=== PATIENT | female | born 1945 | race Caucasian/White ===

== ENCOUNTER 2017-08-04 18:15 | Inpatient (IN) | payer SELFPAY ==
[2017-08-04 18:18] VITALS: BMI 37.2
--- NOTE | 2017-08-04 19:44 | C.PDOC ---
History Of Present Illness The patient presents to the ED for evaluation of swelling to her bilateral lower extremities which she noticed for the past couple days. Patient states she was recently evicted from her apartment. Patient has no physical complaints at present time and denies fever, chills, nausea, vomiting. Time Seen by Provider: 08/04/17 19:43 Chief Complaint (Nursing): Medical Clearance History Per: Patient History/Exam Limitations: no limitations Onset/Duration Of Symptoms: Days Current Symptoms Are (Timing): Still Present Severity: None Pain Scale Rating Of: 0 Recent travel outside of the [place]: No Additional History Per: Patient Past Medical History Reviewed: Historical Data, Nursing Documentation, Vital Signs Vital Signs: Last Vital Signs Temp 97.6 F 08/04/17 18:33 Pulse 103 H 08/04/17 18:33 Resp 20 08/04/17 18:33 BP 154/82 H 08/04/17 18:33 Pulse Ox 99 08/04/17 21:29 - Medical History PMH: HTN Surgical History: No Surg Hx - [facility] Procedures DRAINAGE OF PERITONEAL CAVITY, PERCUTANEOUS APPROACH (04/23/16) DRAINAGE OF PERITONEAL CAVITY, PERCUTANEOUS APPROACH, DIAGN (11/15/16) ULTRASONOGRAPHY OF ABDOMEN (11/15/16) ULTRASONOGRAPHY OF RIGHT AND LEFT HEART, TRANSESOPHAGEAL (02/24/16) Family History: States: Unknown Family Hx - Social History Hx Alcohol Use: No Hx Substance Use: No - Immunization History Hx Tetanus Toxoid Vaccination: No Hx Influenza Vaccination: No Hx Pneumococcal Vaccination: No Review Of Systems Constitutional: Negative for: Fever, Chills Cardiovascular: Negative for: Chest Pain, Palpitations Respiratory: Negative for: Cough, Shortness of Breath Gastrointestinal: Negative for: Nausea, Vomiting Skin: Positive for: Other (swelling to bilateral legs ). Negative for: Rash, Lesions, Jaundice, Bruising Neurological: Negative for: Weakness, Numbness Physical Exam - Physical Exam Appears: Non-toxic, No Acute Distress Skin: Warm, Dry Head: Normacephalic, No Tenderness, No Swelling Eye(s): bilateral: Normal Inspection Oral Mucosa: Moist Neck: Supple Chest: Symmetrical, No Deformity, No Tenderness Cardiovascular: Rhythm Regular, No Murmur Respiratory: No Rales, Rhonchi (scattered ), No Wheezing Gastrointestinal/Abdominal: Soft, No Tenderness, Distention, No Guarding, No Rebound, Other (positive fluid wave test) Extremity: Normal ROM, No Tenderness, Pedal Edema, No Calf Tenderness, Capillary Refill (less than 2 seconds ) Pulses: Left Dorsalis Pedis: Normal, Right Dorsalis Pedis: Normal Neurological/Psych: Oriented x3 Gait: Steady ED Course And Treatment - Laboratory Results Result Diagrams: 08/04/17 20:39 08/04/17 20:39 O2 Sat by Pulse Oximetry: 99 (on RA) Pulse Ox Interpretation: Normal - Radiology CXR: Interpreted by Me, Viewed By Me CXR Interpretation: No: Infiltrates, Fracture, Pnemothorax Progress Note: labs and CXR ordered and reviewed. Disposition Discussed With : Ailin Cannon Comment: accepted the pt on his service and took over the care ta 9:28 PM Doctor Will See Patient In The: Hospital Counseled Patient/Family Regarding: Studies Performed, Diagnosis - Disposition Disposition: HOSPITALIZED Disposition Time: 19:44 Condition: FAIR - POA Present On Arrival: Poor Glycemic Control - Clinical Impression Clinical Impression: Diabetes, Ascites of liver, Anemia, Leg edema - Scribe Statement The provider has reviewed the documentation as recorded by the Scribe (Brittany Oswald) Decision To Admit - Pt Status Changed To: Hospital Disposition Of: Inpatient - Admit Certification Admit to Inpatient:: After my assessment, the patient will require hospitalization for at least two midnights. This is because of the severity of symptoms shown, intensity of services needed, and/or the medical risk in this patient being treated as an outpatient. - InPatient: Physician Admission Certification: I certify that this patient requires 2 or more midnights of care for the following reason:: After my assessment, the patient will require hospitalization for at least two midnights. This is because of the severity of symptoms shown, intensity of services needed, and/or the medical risk in this patient being treated as an outpatient. - . Bed Request Type: Regular Admitting Physician: Ailin Cannon Patient Diagnosis: Diabetes, Ascites of liver, Anemia, Leg edema
[2017-08-04 20:47] LABS: BASO % 0.6 % (0.0-2.0); EOS % 1.7 % (0.0-4.0); HEMATOCRIT 31.3 % (34.0-47.0); LYMPH # 0.7 K/uL (1.0-4.3); LYMPH % 25.1 % (20.0-40.0); MEAN CELL VOLUME 90.5 fL (81.0-99.0); MEAN CORPUSCULAR HEMOGLOBIN 31.2 pg (27.0-31.0); MEAN CORPUSCULAR HGB CONC 34.5 g/dL (33.0-37.0); MEAN PLATELET VOLUME 9.2 fL (7.2-11.7); MONO # 0.2 K/uL (0.0-0.8); MONO % 6.6 % (0.0-10.0); NRBC % 0.2 % (0.0-2.0); RED CELL DISTRIBUTION WIDTH 14.1 % (11.5-14.5); WHITE BLOOD COUNT 2.7 K/uL (4.8-10.8)
[2017-08-04 20:55] LABS: CHLORIDE 102 mmol/L (98-107); INR 1.4; POTASSIUM 3.6 mmol/L (3.6-5.2); SODIUM 135 mmol/L (132-148)
[2017-08-04 20:57] LABS: ALB/GLOB RATIO 0.7 (1.0-2.1); ALKALINE PHOSPHATASE 97 U/L (38-126); AST/SGOT 56 U/L (14-36); BILIRUBIN,TOTAL 2.6 mg/dL (0.2-1.3); CARBON DIOXIDE 23 mmol/L (22-30); GFR AFRICAN-AMERICAN > 60; TOTAL PROTEIN 6.5 g/dL (6.3-8.3)
[2017-08-04 20:58] LABS: ALT/SGPT 51 U/L (9-52); BLOOD UREA NITROGEN 9 mg/dL (7-17); CALCIUM 7.7 mg/dl (8.6-10.4); GLUCOSE,RANDOM 186 mg/dL (65-105)
[2017-08-04 21:06] LABS: RBC URINE 19 /hpf (0-3); TRANSITIONAL EPITHIAL 1 /hpf (0-3); URINE BACTERIA OCC (<OCC); URINE BILIRUBIN NEGATIVE (NEGATIVE); URINE CALCIUM OXALATE CRYSTALS OCC /hpf (<OCC); URINE COLOR Amber (YELLOW); URINE GLUCOSE (UA) 1+ mg/dL (Normal); URINE KETONE NEGATIVE (NEGATIVE); URINE LEUKOCYTE ESTERASE 2+ Leu/uL (Negative); URINE PROTEIN NEGATIVE (NEGATIVE); WBC URINE 9 /hpf (0-5)
[2017-08-04 21:08] LABS: URINE BLOOD 2+ (NEGATIVE)
[2017-08-04] MEDS ORDERED: (Novolin R) Insulin Human Regular 100 units/ml vial ONE (22:14)
[2017-08-04] MEDS: (Novolin R) Insulin Human Regular 100 units/ml vial SC SCH (22:15)
[2017-08-05] MEDS: (Novolin R) Insulin Human Regular 100 units/ml vial SC SCH ×4 (08:31→22:21)
--- NOTE | 2017-08-05 09:15 | CP.PCM.PN ---
Subjective - Date & Time of Evaluation Date of Evaluation: 08/05/17 Time of Evaluation: 09:11 - Subjective Subjective: PGY-[address] Cannon's service: Pt seen and examined at bedside. Nursing reports no acute events overnight. She admits history of previous therapeutic paracentesis. She admits her "belly is getting larger" and feels "tense" but denies fever, chills, chest pain, abdominal pain, N/V/D/C. ___ The patient presents to the ED for evaluation of swelling to her bilateral lower extremities which she noticed for the past couple days. Patient states she was recently evicted from her apartment. Patient has no physical complaints at present time and denies fever, chills, nausea, vomiting. Objective - Vital Signs/Intake and Output Vital Signs (last 24 hours): Temp Pulse Resp BP Pulse Ox 98.5 F 80 17 125/75 95 08/05/17 07:10 08/05/17 07:10 08/05/17 07:10 08/05/17 07:10 08/05/17 07:10 Intake and Output: 08/05/17 08/05/17 06:59 18:59 Output Total 350 Balance -350 - Medications Medications: Current Medications Folic Acid (Folic Acid) 1 mg PO DAILY [facility] Furosemide (Lasix) 40 mg PO BID [facility] Home Med (Fluticasone/Vilanterol [Breo Ellipta 200-25 Mcg Inh]) 1 each IH BID [facility] Insulin Human Regular (Novolin R) 1 unit SC ACHS [facility] PRN Reason: Protocol Last Admin: 08/05/17 08:31 Dose: 1 unit Lactulose (Enulose) 20 gm PO DAILY [facility] Magnesium Oxide (Mag-Ox) 400 mg PO BID [facility] Sitagliptin Phosphate (Januvia) 100 mg PO DAILY [facility] Spironolactone (Aldactone) 50 mg PO BID [facility] Thiamine HCl (Vitamin B1 Tab) 100 mg PO DAILY [facility] - Labs Labs: 08/04/17 20:39 08/04/17 20:39 PT 15.4 SECONDS (9.7-12.2) H 08/04/17 20:39 INR 1.4 08/04/17 20:39 APTT 30 SECONDS (21-34) 08/04/17 20:39 Assessment and Plan - Assessment and Plan (Free Text) Plan: Leg edema Total body salt and water overload in setting of decompensated liver cirrhosis; will benefit from careful IV diuretics in the setting of borderline hypotension; -lasix 40 mg PO bid Type Two Diabetes Mellitus Uncontrolled; reports being only on PO meds, no insulin; possibly worsened in setting of active infection; - Start Lantus 10 u this evening -Januvia 100mg PO Daily -High dose sliding scale - f/u lipid panel, A1C Ascites of liver Likely secondary to hep C; abd distended but still soft; will benefit from therapeutic paracentesis by IR in am - f/u fluid analysis, body cell count for unlikely SBP Spirinolactone 50mg PO BID Lasix 40mg PO BID Hepatitis C Unclear if patient was being treated by [facility] [place] as she mentions being on a very expensive medication (local pharmacy unaware of this); -obtain records from [facility] - f/u Ammonia level in AM Lethargy Likely secondary to deconditioning in the setting of fluid overload; clinically not consistent with hepatic encephalopathy as patient is very lucid in giving history; -ammonia level in AM Leukopenia No fever, chills, SBP unlikely WBC 2.7 on AM labs - believe from history of hepatitis Hx of Anemia Hgb 10.8, stable Monitor Prophylaxis Hold heparin in setting of thrombocytopenia Pepcid 20mg PO BID SCDs C/I due to leg swelling Crow Bowie PGY-2 All medical management per Dr. Cannon
--- NOTE | 2017-08-05 09:20 | RAD ---
PROCEDURE: CHEST RADIOGRAPH, 1 VIEW HISTORY: Abdominal pain COMPARISON: 11/15/2016 FINDINGS: LUNGS: Mild venous congestion. Right hilar prominence. Patchy left basilar airspace opacity. PLEURA: No pneumothorax or pleural fluid seen. CARDIOVASCULAR: Tortuous aorta. OSSEOUS STRUCTURES: No significant abnormalities. VISUALIZED UPPER ABDOMEN: Normal. OTHER FINDINGS: None. IMPRESSION: Mild venous congestion. Right hilar prominence. Patchy left basilar airspace opacity.
[2017-08-05] MEDS ORDERED: Home Med 1 UNIT (Fluticasone/Vilanterol [Breo Ellipta 200-25 Mcg Inh] 1 EACH) IH SCH (10:00)
[2017-08-05] MEDS: Magnesium Oxide 400 mg Tab UD PO SCH ×2 (10:52→17:50)
[2017-08-05] MEDS: (Lantus) Insulin Glargine, Recombinant SC SCH (22:36)
--- NOTE | 2017-08-06 06:17 | HP ---
DATE OF SERVICE: 08/05/2017 HISTORY OF PRESENT ILLNESS: The patient is a 71-year-old female with history of liver cirrhosis, chief complaint of ascites, abdominal pain ____. Denies drinking. Denies smoking. PHYSICAL EXAMINATION: GENERAL: The patient is awake, alert, oriented. VITAL SIGNS: Temperature 98, pulse 90. HEENT: Within normal limits. NECK: Supple. CHEST: Symmetrical. HEART: Regular. ABDOMEN: Markedly distended. Umbilical hernia present . IMPRESSION AND PLAN: The patient has liver cirrhosis, ascites. Patient bedrest, dialysis. Ailin Cannon MD
[2017-08-06 07:26] LABS: BASO % 0.7 % (0.0-2.0); EOS # 0.1 K/uL (0.0-0.7); EOS % 2.5 % (0.0-4.0); HEMATOCRIT 28.8 % (34.0-47.0); LYMPH # 0.6 K/uL (1.0-4.3); LYMPH % 25.7 % (20.0-40.0); MEAN CELL VOLUME 90.6 fL (81.0-99.0); MEAN CORPUSCULAR HEMOGLOBIN 31.2 pg (27.0-31.0); MEAN CORPUSCULAR HGB CONC 34.4 g/dL (33.0-37.0); MEAN PLATELET VOLUME 9.5 fL (7.2-11.7); MONO # 0.2 K/uL (0.0-0.8); MONO % 9.8 % (0.0-10.0); NRBC % 0.2 % (0.0-2.0); WHITE BLOOD COUNT 2.2 K/uL (4.8-10.8)
[2017-08-06 07:51] LABS: CHLORIDE 100 mmol/L (98-107); POTASSIUM 3.7 mmol/L (3.6-5.2); SODIUM 134 mmol/L (132-148)
[2017-08-06 07:53] LABS: ALB/GLOB RATIO 0.6 (1.0-2.1); ALKALINE PHOSPHATASE 114 U/L (38-126); AST/SGOT 54 U/L (14-36); BILIRUBIN,TOTAL 1.4 mg/dL (0.2-1.3); BLOOD UREA NITROGEN 12 mg/dL (7-17); CARBON DIOXIDE 23 mmol/L (22-30); CHOLESTEROL 107 mg/dL (0-199); GFR AFRICAN-AMERICAN > 60; GLUCOSE,RANDOM 288 mg/dL (65-105)
[2017-08-06 07:54] LABS: ALT/SGPT 36 U/L (9-52); CALCIUM 7.9 mg/dl (8.6-10.4); MAGNESIUM 1.6 mg/dL (1.6-2.3); PHOSPHOROUS 3.5 mg/dL (2.5-4.5)
[2017-08-06] MEDS: (Novolin R) Insulin Human Regular 100 units/ml vial SC SCH ×4 (08:30→22:06)
[2017-08-06] MEDS: Magnesium Oxide 400 mg Tab UD PO SCH ×2 (09:29→18:13)
--- NOTE | 2017-08-06 10:50 | PCM.SURG1 ---
Surgeon's Initial Post Op Note - Surgeon's Notes Surgeon: Lakhwinder Durbin MD Marine Equipment Test Engineer: NONE Type of Anesthesia: Local Pre-Operative Diagnosis: Ascites Operative Findings: US showed a small amount ascites Post-Operative Diagnosis: Ascites Operation Performed: US guided paracentesis. Specimen/Specimens Removed: 3 liters of straw colored fluid Estimated Blood Loss: EBL {In ML}: 0 Blood Products Given: N/A Drains Used: No Drains Post-Op Condition: Fair Date of Surgery/Procedure: 08/06/17 Time of Surgery/Procedure: 10:45
[2017-08-06] MEDS ORDERED: Albumin Human 5% (12.5 gm/250 ml) IV ONE ×2 (11:45→14:00)
--- NOTE | 2017-08-06 13:02 | CP.PCM.PN ---
Subjective - Date & Time of Evaluation Date of Evaluation: 08/06/17 Time of Evaluation: 09:15 - Subjective Subjective: Dr. Cannon note: Patient seen and examined in room. She is complaining of abdominal pain, distention and some difficulty breathing. She has a history of hepatitis C and liver cirrhosis for which she sometimes has needed a therapeutic paracentesis. She denies fever, chills, nausea, vomiting, confusion, but admits to feeling very lethargic. Objective - Vital Signs/Intake and Output Vital Signs (last 24 hours): Temp Pulse Resp BP Pulse Ox 98.1 F 81 18 117/65 96 08/06/17 07:15 08/06/17 07:15 08/06/17 07:15 08/06/17 09:32 08/06/17 07:15 Intake and Output: 08/06/17 08/06/17 06:59 18:59 Intake Total 400 Balance 400 - Medications Medications: Current Medications Famotidine (Pepcid) 20 mg PO BID [facility] Last Admin: 08/06/17 09:29 Dose: 20 mg Folic Acid (Folic Acid) 1 mg PO DAILY [facility] Last Admin: 08/06/17 09:29 Dose: 1 mg Furosemide (Lasix) 40 mg PO BID [facility] Last Admin: 08/06/17 09:32 Dose: 40 mg Ceftriaxone Sodium 1 gm/ (Sodium Chloride) 100 mls @ 100 mls/hr IVPB Q24H [facility] Last Admin: 08/06/17 12:26 Dose: 100 mls/hr Insulin Glargine (Lantus) 10 unit SC HS [facility] Last Admin: 08/05/17 22:36 Dose: 10 units Insulin Human Regular (Novolin R) 0 unit SC ACHS [facility] PRN Reason: Protocol Last Admin: 08/06/17 12:25 Dose: 4 unit Lactulose (Enulose) 20 gm PO Q6H [facility] Last Admin: 08/06/17 12:46 Dose: Not Given Magnesium Oxide (Mag-Ox) 400 mg PO BID [facility] Last Admin: 08/06/17 09:29 Dose: 400 mg Fluticasone/Salmeterol (Advair Diskus 250/50) 1 puff INH RQ12 [facility] Sitagliptin Phosphate (Januvia) 100 mg PO DAILY [facility] Last Admin: 08/06/17 09:29 Dose: 100 mg Spironolactone (Aldactone) 50 mg PO BID [facility] Last Admin: 08/06/17 09:29 Dose: 50 mg Thiamine HCl (Vitamin B1 Tab) 100 mg PO DAILY [facility] Last Admin: 08/06/17 09:29 Dose: 100 mg - Labs Labs: 08/06/17 07:11 08/06/17 07:11 PT 15.4 SECONDS (9.7-12.2) H 08/04/17 20:39 INR 1.4 08/04/17 20:39 APTT 30 SECONDS (21-34) 08/04/17 20:39 - Constitutional Appears: Non-toxic, No Acute Distress - Eye Exam Eye Exam: Normal appearance Pupil Exam: NORMAL ACCOMODATION - Respiratory Exam Respiratory Exam: Clear to Ausculation Bilateral. absent: Rales, Rhonchi, Wheezes - Cardiovascular Exam Cardiovascular Exam: REGULAR RHYTHM, RRR, +S1, +S2. absent: Gallop, Rubs - GI/Abdominal Exam GI & Abdominal Exam: Distended, Firm, Tenderness, Normal Bowel Sounds. absent: Guarding, Soft - Extremities Exam Extremities Exam: Normal Inspection - Back Exam Back Exam: NORMAL INSPECTION - Psychiatric Exam Psychiatric exam: Normal Affect, Normal Mood - Skin Skin Exam: Normal Color Assessment and Plan - Assessment and Plan (Free Text) Assessment: Ascites of liver 08/06: Patient went for paracentesis today with IR, will follow up results, gave replacement albumin, continue Aladactone and Lasix. Most likely dc tomorrow if stable. Rocephin given for SBP. Follow up fluid analysis, cell count. Likely secondary to hep C; abd distended but still soft; will benefit from therapeutic paracentesis by IR in am - f/u fluid analysis, body cell count for unlikely SBP Spirinolactone 50mg PO BID Lasix 40mg PO BID Hepatic Encephaloapthy: 08/06: Ammonia level is now 64, Lactulose 20mg Q6H, will continue to monitor patient and also check Leg edema 08/06: continue with Lasix, Total body salt and water overload in setting of decompensated liver cirrhosis; will benefit from careful IV diuretics in the setting of borderline hypotension; -lasix 40 mg PO bid Lethargy Likely secondary to deconditioning in the setting of fluid overload; clinically not consistent with hepatic encephalopathy as patient is very lucid in giving history; -ammonia level in AM Hepatitis C 08/06: Ammonia 64, laculose 20mg q6h Unclear if patient was being treated by [facility] [place] as she mentions being on a very expensive medication (local pharmacy unaware of this); -obtain records from [facility] - f/u Ammonia level in AM Leukopenia 08/06: WBC 2.2 with absolute neutrophil count of 1.3. No fever, chills, SBP unlikely WBC 2.7 on AM labs - believe from history of hepatitis Type Two Diabetes Mellitus 08/06: continue with current managment hbg a1c is 9.8, patient may benefit from long acting insulin. Lipid panel unremarkable Uncontrolled; reports being only on PO meds, no insulin; possibly worsened in setting of active infection; - Start Lantus 10 u this evening -Januvia 100mg PO Daily -High dose sliding scale - f/u lipid panel, A1C Hx of Anemia 08/06: Hbg 9.9, stable Hgb 10.8, stable Monitor Prophylaxis 08/06: continue with current managment Hold heparin in setting of thrombocytopenia Pepcid 20mg PO BID SCDs C/I due to leg swelling Crow Bowie PGY-2 All medical management per Dr. Cannon
[2017-08-06 14:00] LABS: BODY FLUID TYPE PERITONEAL/ASCITES
[2017-08-06 15:15] LABS: BF GROSS APPEARANCE SL CLOUDY (CLEAR); BODY FLUID TOTAL COUNT 100 (0-0)
[2017-08-06] MEDS ORDERED: Dextrose 50% SYRINGE Inj (50 ml) IV PRN (17:52)
[2017-08-06] MEDS: Fluticasone-Salmeterol 250-50mcg Diskus INH SCH (19:59)
[2017-08-06] MEDS: (Lantus) Insulin Glargine, Recombinant SC SCH (22:06)
[2017-08-07 00:37] VITALS: RESP 20
[2017-08-07] MEDS ORDERED: (Novolin R) Insulin Human Regular 100 units/ml vial SC ONE (02:40)
[2017-08-07 07:08] LABS: BASO % 0.4 % (0.0-2.0); EOS % 1.8 % (0.0-4.0); HEMATOCRIT 29.6 % (34.0-47.0); LYMPH # 0.5 K/uL (1.0-4.3); LYMPH % 22.7 % (20.0-40.0); MEAN CELL VOLUME 90.3 fL (81.0-99.0); MEAN CORPUSCULAR HEMOGLOBIN 31.1 pg (27.0-31.0); MEAN CORPUSCULAR HGB CONC 34.5 g/dL (33.0-37.0); MEAN PLATELET VOLUME 9.8 fL (7.2-11.7); MONO # 0.2 K/uL (0.0-0.8); MONO % 10.1 % (0.0-10.0); RED CELL DISTRIBUTION WIDTH 14.1 % (11.5-14.5); WHITE BLOOD COUNT 2.1 K/uL (4.8-10.8)
[2017-08-07 07:20] LABS: CHLORIDE 97 mmol/L (98-107)
[2017-08-07 07:21] LABS: POTASSIUM 3.9 mmol/L (3.6-5.2); SODIUM 129 mmol/L (132-148)
[2017-08-07 07:23] LABS: CARBON DIOXIDE 24 mmol/L (22-30); GFR AFRICAN-AMERICAN > 60
[2017-08-07 07:24] LABS: ALB/GLOB RATIO 0.6 (1.0-2.1); ALKALINE PHOSPHATASE 114 U/L (38-126); ALT/SGPT 40 U/L (9-52); AST/SGOT 50 U/L (14-36); BILIRUBIN,TOTAL 1.4 mg/dL (0.2-1.3); BLOOD UREA NITROGEN 13 mg/dL (7-17); CALCIUM 8.1 mg/dl (8.6-10.4); GLUCOSE,RANDOM 315 mg/dL (65-105); PHOSPHOROUS 3.3 mg/dL (2.5-4.5); TOTAL PROTEIN 6.3 g/dL (6.3-8.3)
[2017-08-07 07:25] LABS: MAGNESIUM 1.6 mg/dL (1.6-2.3)
[2017-08-07] MEDS: Fluticasone-Salmeterol 250-50mcg Diskus INH SCH (07:59)
[2017-08-07] MEDS: (Novolin R) Insulin Human Regular 100 units/ml vial SC SCH ×2 (08:17→11:44)
[2017-08-07] MEDS: Magnesium Oxide 400 mg Tab UD PO SCH (10:56)
--- NOTE | 2017-08-07 15:37 | CP.PCM.PN ---
Subjective - Date & Time of Evaluation Date of Evaluation: 08/07/17 Time of Evaluation: 09:00 - Subjective Subjective: Dr. Cannon note: Patient is a 71 year old female with a history of DM, Hepatitis C, liver cirrhosis, and ascities. She had a paracentesis performed yesterday and her pain has been relieved. She is worried about being discharged because she was recently evicted from her home. Objective - Vital Signs/Intake and Output Vital Signs (last 24 hours): Temp Pulse Resp BP Pulse Ox 98.3 F 80 20 121/69 95 08/07/17 07:51 08/07/17 07:51 08/07/17 07:51 08/07/17 09:28 08/07/17 07:51 Intake and Output: 08/07/17 08/07/17 06:59 18:59 Intake Total 380 Balance 380 - Medications Medications: Current Medications Dextrose (Dextrose 50% Inj) 0 ml IV STAT PRN; Protocol PRN Reason: Hyglycemia Protocol Dextrose (Glutose 15) 0 gm PO ONCE PRN; Protocol PRN Reason: Hypoglycemia Protocol Famotidine (Pepcid) 20 mg PO BID [facility] Last Admin: 08/07/17 09:28 Dose: 20 mg Folic Acid (Folic Acid) 1 mg PO DAILY [facility] Last Admin: 08/07/17 09:28 Dose: 1 mg Furosemide (Lasix) 40 mg PO BID [facility] Last Admin: 08/07/17 09:28 Dose: 40 mg Ceftriaxone Sodium 1 gm/ (Sodium Chloride) 100 mls @ 100 mls/hr IVPB Q24H [facility] Last Admin: 08/07/17 11:30 Dose: 100 mls/hr Dextrose (Dextrose 5% In Water 1000 Ml) 1,000 mls @ 0 mls/hr IV .Q0M PRN; Protocol; Per Protocol PRN Reason: Hypoglycemia Protocol Insulin Glargine (Lantus) 10 unit SC HS [facility] Last Admin: 08/06/17 22:06 Dose: 10 units Insulin Human Regular (Novolin R) 0 unit SC ACHS [facility] PRN Reason: Protocol Last Admin: 08/07/17 11:44 Dose: 10 unit Lactulose (Enulose) 20 gm PO Q6H [facility] Last Admin: 08/07/17 09:28 Dose: 20 gm Magnesium Oxide (Mag-Ox) 400 mg PO BID [facility] Last Admin: 08/07/17 10:56 Dose: 400 mg Fluticasone/Salmeterol (Advair Diskus 250/50) 1 puff INH RQ12 [facility] Last Admin: 08/07/17 07:59 Dose: 1 puff Sitagliptin Phosphate (Januvia) 100 mg PO DAILY [facility] Last Admin: 08/07/17 09:28 Dose: 100 mg Spironolactone (Aldactone) 50 mg PO BID [facility] Last Admin: 08/07/17 09:33 Dose: 50 mg Thiamine HCl (Vitamin B1 Tab) 100 mg PO DAILY [facility] Last Admin: 08/07/17 10:56 Dose: 100 mg - Labs Labs: 08/07/17 07:01 08/07/17 07:01 PT 15.4 SECONDS (9.7-12.2) H 08/04/17 20:39 INR 1.4 08/04/17 20:39 APTT 30 SECONDS (21-34) 08/04/17 20:39 - Constitutional Appears: Non-toxic, No Acute Distress, Chronically Ill - Eye Exam Eye Exam: Normal appearance - Respiratory Exam Respiratory Exam: Clear to Ausculation Bilateral. absent: Rales, Rhonchi, Wheezes - Cardiovascular Exam Cardiovascular Exam: REGULAR RHYTHM, RRR, +S1, +S2. absent: Gallop, Rubs - GI/Abdominal Exam GI & Abdominal Exam: Distended, Soft, Normal Bowel Sounds. absent: Tenderness Additional comments: umbilical hernia - Extremities Exam Extremities Exam: Normal Inspection. absent: Pedal Edema - Back Exam Back Exam: NORMAL INSPECTION - Psychiatric Exam Psychiatric exam: Normal Affect, Normal Mood - Skin Skin Exam: Normal Color Assessment and Plan - Assessment and Plan (Free Text) Assessment: Ascites of liver 08/07: Patient was discharged home today, with scripts for lasix 40mg bid and Spirinalactone 50mg bid, she will need to follow up with [facility][Note 3] after discharge. Patient also given script for thiamine and folic acid. 08/06: Patient went for paracentesis today with IR, will follow up results, gave replacement albumin, continue Aladactone and Lasix. Most likely dc tomorrow if stable. Rocephin given for SBP. Follow up fluid analysis, cell count. Likely secondary to hep C; abd distended but still soft; will benefit from therapeutic paracentesis by IR in am - f/u fluid analysis, body cell count for unlikely SBP Spirinolactone 50mg PO BID Lasix 40mg PO BID Hepatic Encephaloapthy: 08/07: script given for lactulose. 08/06: Ammonia level is now 64, Lactulose 20mg Q6H, will continue to monitor patient and also check Leg edema 08/06: continue with Lasix, Total body salt and water overload in setting of decompensated liver cirrhosis; will benefit from careful IV diuretics in the setting of borderline hypotension; -lasix 40 mg PO bid Lethargy Likely secondary to deconditioning in the setting of fluid overload; clinically not consistent with hepatic encephalopathy as patient is very lucid in giving history; -ammonia level in AM Hepatitis C 08/06: Ammonia 64, laculose 20mg q6h Unclear if patient was being treated by [facility] [place] as she mentions being on a very expensive medication (local pharmacy unaware of this); -obtain records from [facility] - f/u Ammonia level in AM Leukopenia 08/06: WBC 2.2 with absolute neutrophil count of 1.3. No fever, chills, SBP unlikely WBC 2.7 on AM labs - believe from history of hepatitis Type Two Diabetes Mellitus 08/07: Started Metformin for patient to start as an outpatient. script for Januvia also given. 08/06: continue with current managment hbg a1c is 9.8, patient may benefit from long acting insulin. Lipid panel unremarkable Uncontrolled; reports being only on PO meds, no insulin; possibly worsened in setting of active infection; - Start Lantus 10 u this evening -Januvia 100mg PO Daily -High dose sliding scale - f/u lipid panel, A1C Hx of Anemia 08/06: Hbg 9.9, stable Hgb 10.8, stable Monitor Prophylaxis 08/06: continue with current managment Hold heparin in setting of thrombocytopenia Pepcid 20mg PO BID SCDs C/I due to leg swelling Crow Bowie PGY-2 All medical management per Dr. Cannon
--- NOTE | 2017-08-07 15:38 | US ---
Date of Procedure: 08/06/2017 PROCEDURE: Ultrasound-guided paracentesis, CPT 97775 Medications: 7 cc 1% Lidocaine HISTORY: Ascites, abdominal pain TECHNIQUE: Following informed consent , the patient was placed supine on the stretcher and the site was marked. A limited abdominal ultrasound was performed that showed a large amount of intra-abdominal fluid. Procedural time out was called and the Pt's abdomen was marked and prepped and draped in the usual sterile fashion. Ultrasound-guided large volume paracentesis performed. A total of 3 liters of straw colored fluid was removed without complication. IMPRESSION: Ultrasound-guided large volume paracentesis.
[2017-08-07 16:40] VITALS: BP 124/69; PULSE 92; TEMP 98.2; O2SAT 99
== END 2017-08-07 18:40 | disposition home or self-care (01) | DRG 433 ==
LOC: C.ER 18:15 → C.9E 21:24 → C.6T 22:44
PROVIDERS: ADMIT Internal Medicine Pulmonary Disease; ATTEND Internal Medicine Pulmonary Disease
PROC: 0W9G3ZZ Drainage of Peritoneal Cavity, Percutaneous Approach (ICD-10-PCS; principal; 2017-08-06)
PROC: BW40ZZZ Ultrasonography of Abdomen (ICD-10-PCS; 2017-08-06)
DX: K74.69 Other cirrhosis of liver (principal); R18.8 Other ascites; E11.65 Type 2 diabetes mellitus with hyperglycemia; K72.90 Hepatic failure, unspecified without coma; E87.70 Fluid overload, unspecified; D64.9 Anemia, unspecified; D72.819 Decreased white blood cell count, unspecified; I10 Essential (primary) hypertension; B18.2 Chronic viral hepatitis C; Z79.84 Long term (current) use of oral hypoglycemic drugs